=== PATIENT | female | born 1980 | race Caucasian/White ===

== ENCOUNTER 2017-06-24 09:23 | Emergency (ER) | payer OTHER ==
[~2017-06-24] VITALS: Ht 157.5 cm; Wt 68.0 kg
[~2017-06-24 09:23] MED LIST: ATIVAN0.5 MG PO; ZOFRAN ODT4 MG PO
[2017-06-24] MEDS ORDERED: LOPRESSOR50 PO (09:31)
[2017-06-24 10:08] LABS: ABSOLUTE NEUTROPHILS 8.3 thou/uL (1.4-8.2); BASOPHILS 0.5 % (0.0-2.0); EOSINOPHILS 1.6 % (0.0-3.0); HEMATOCRIT 46.6 % (37.0-47.0); HEMOGLOBIN 15.7 gm/dL (12.0-15.0); LYMPHOCYTES 21.3 % (24.0-44.0); MANUAL DIFF NO; MCH 28.6 pg (26.0-34.0); MCHC 33.6 g/dL (28.0-37.0); MCV 85.1 fL (80.0-100.0); MONOCYTES 6.1 % (1.0-8.0); PLATELET COUNT 239 thou/uL (150-400); POLYS 70.5 % (36.0-66.0); RBC 5.47 mil/uL (4.20-5.00); RDW 12.6 % (10.5-14.5); WBC 11.7 thou/uL (4.0-11.0)
[2017-06-24 10:12] LABS: URINE BLOOD 2+ (Negative); URINE COLOR YELLOW; URINE GLUCOSE-RANDOM* NEGATIVE (Negative); URINE KETONES TRACE (Negative); URINE NITRITE NEGATIVE (Negative); URINE PROTEIN (DIPSTICK) NEGATIVE (Negative); URINE SPECIFIC GRAVITY >= 1.030 (1.005-1.035)
[2017-06-24 10:14] LABS: CALCIUM 8.6 mg/dL (8.5-10.1); CREATININE 0.7 mg/dL (0.6-1.0); POTASSIUM 3.5 mmol/L (3.5-5.1)
[2017-06-24 10:15] LABS: ICTOTEST (BILI CONFIRMATORY) Negative (Negative); URINE BILIRUBIN NEGATIVE (Negative)
[2017-06-24 10:19] LABS: ALBUMIN 3.9 g/dL (3.4-5.0); DIRECT BILIRUBIN 0.1 mg/dL (<0.1-0.3); TOTAL PROTEIN 6.9 g/dL (6.4-8.2)
[2017-06-24 10:36] LABS: BACTERIA 1-9 Few /HPF (None Seen); CASTS None Seen /LPF (None Seen); CRYSTALS None Seen /LPF (None Seen); SQUAMOUS >10 Many /LPF (0-3); URINE RBC 3-10 Few /HPF (0-2); URINE WBC 0-5 Rare /HPF (0-5)
[2017-06-24 11:11] VITALS: BP 112/80
[2017-06-24] MEDS ORDERED: PHENERGAN 25 MG25 M1 PO (11:12)
== END 2017-06-24 11:16 | disposition home or self-care (01) ==
LOC: ER 09:23
PROVIDERS: Nurse Practitioner
DX: E86.0 Dehydration (principal); I48.91 Unspecified atrial fibrillation; F41.9 Anxiety disorder, unspecified; F17.210 Nicotine dependence, cigarettes, uncomplicated; Z88.0 Allergy status to penicillin